=== PATIENT | male | born 1940 | race Two or more races ===

== ENCOUNTER 2021-09-09 18:34 | Emergency (ER) | payer MEDICARE, BC ==
[~2021-09-09] VITALS: Ht 180.3 cm; Wt 99.8 kg
--- NOTE | 2021-09-09 18:34 | NUR ---
BIB HOME, BLADDER PAIN X 36 HOURS, UNABLE TO URINATE SINCE 1200. VITALS ARE WITHIN NORMAL LIMITS. BREATHING IS EVEN AND UNLABORED.
--- NOTE | 2021-09-09 19:05 | NUR ---
REC'D PT WITH IN DWELLING CUDEE DAN CATH. NO URINE DRAINAGE NOTED. AWARE
[2021-09-09] MEDS ORDERED: LIDOCAINE 2% JEL UROJET 10 ML MM ONE (19:08)
[2021-09-09] MEDS ORDERED: MORPHINE SULFATE INJ 2 MG/ML DISP.SYRIN IV ONE (20:00)
--- NOTE | 2021-09-09 20:04 | NUR ---
BLADDER SCANNER SHOWED 940ML OF URINE IN BLADDER. AWARE
[2021-09-09] MEDS ORDERED: KETOROLAC TROMETHAMINE INJ 30 MG/ML VIAL ONE (20:05)
--- NOTE | 2021-09-09 20:06 | NUR ---
VERBAL ORDER OF 30MG TORADOL IV
--- NOTE | 2021-09-09 20:07 | NUR ---
PT'S UROLOGIST, ERIK RUSH CALLED. MESSAGE LEFT.
[2021-09-09 20:17] LABS: BASOPHILS % (AUTO) 0.3 % (0.0-2.0); EOSINOPHILS % (AUTO) 0.3 % (0.0-6.0); HEMATOCRIT 41 % (39-51); HEMOGLOBIN 14.6 g/dL (13.5-17.5); LYMPHOCYTES # (AUTO) 0.5 K/uL (0.8-4.8); LYMPHOCYTES % (AUTO) 7.9 % (20.0-44.0); MEAN CORPUSCULAR HGB CONC 35 g/dl (31.0-36.0); MEAN CORPUSCULAR VOLUME 91 fL (80-96); MONOCYTES # (AUTO) 0.4 K/uL (0.1-1.30); MONOCYTES % (AUTO) 7.4 % (2.0-12.0); NEUTROPHILS # (AUTO) 4.9 K/uL (1.8-8.9); NEUTROPHILS % (AUTO) 84.1 % (43.0-81.0); PLATELET COUNT (AUTO) 159 K/uL (150-450); RED BLOOD CELL COUNT(AUTO) 4.54 MIL/uL (4.5-6.0); WHITE BLOOD COUNT (AUTO) 5.8 K/uL (4.3-11.0)
[2021-09-09 20:32] LABS: CALCIUM, SERUM 8.3 mg/dL (8.5-10.1); CREATININE 1.1 mg/dL (0.6-1.3); POTASSIUM 3.3 mmol/L (3.5-5.1)
--- NOTE | 2021-09-09 20:38 | NUR ---
DR ACE AT BEDSIDE
[2021-09-09] MEDS ORDERED: MORPHINE SULFATE INJ 4 MG/ML DISP.SYRIN ONE (20:43)
[2021-09-09] MEDS ORDERED: KETOROLAC TROMETHAMINE INJ 30 MG/ML VIAL IV ONE (21:00)
--- NOTE | 2021-09-09 21:00 | NUR ---
IN DWELLING DAN CATH INSERTED BY DR ACE. DRAINING OUTPUT JUST UNDER 1000ML OF BLOODY TINGED URINE. PT TOLERATED PROCEDURE WELL AND IS FEELING RELIEF
[2021-09-09] MEDS ORDERED: ACET-73 PO (21:28)
[2021-09-09] MEDS ORDERED: CEPH500C2 PO (21:28)
--- NOTE | 2021-09-09 21:45 | NUR ---
URINE SENT TO LAB
--- NOTE | 2021-09-09 22:05 | NUR ---
Patient discharged to home in stable condition. Written and verbal after care instructions given. Patient verbalizes understanding of instruction. IV removed. Catheter intact and site benign. Pressure and 4x4 applied to site. No bleeding noted. PT wheeled out to son's car
[2021-09-09 22:22] VITALS: BP 130/74
[2021-09-09 22:45] LABS: BILIRUBIN,URINE NEGATIVE (NEGATIVE); COLOR,URINE RED (YELLOW); LEUKOCYTE ESTERASE ,URINE TRACE (NEGATIVE); NITRITE, URINE NEGATIVE (NEGATIVE); PH,URINE 5.5 (5.0-8.0); PROTEIN,URINE >=300 mg/dl (NEGATIVE); UGLUCOSE NEGATIVE (NEGATIVE)
[2021-09-10 09:37] LABS: BACTERIA,URINE 2+ /HPF (None Seen); RBC,URINE TOO NUMEROUS TO COUN /HPF (0-2); SQUAMOUS EPITHELIAL CELL,UR 1 /HPF (None Seen)
== END 2021-09-09 22:05 | disposition home or self-care (01) ==
LOC: ER 19:08
DX: R33.9 Retention of urine, unspecified (principal); Z87.438 Personal history of other diseases of male genital organs; Z79.899 Other long term (current) drug therapy
CPT/HCPCS: 36415; 51702; 80048; 81001; 85025; 87086; 96374; 96375; 99284; J1885; J2270; J3490